=== PATIENT | female | born 1990 | race Caucasian/White ===

== ENCOUNTER 2020-01-13 10:36 | Emergency (ER) | payer OTHER ==
[~2020-01-13] VITALS: Ht 162.6 cm; Wt 57.0 kg
[2020-01-13] MEDS ORDERED: AZO-95TA3 PO (11:01)
--- NOTE | 2020-01-13 11:47 | REPVR ---
PROCEDURE INFORMATION: Exam: US Retroperitoneal Limited, Kidneys Exam date and time: 01/13/2020 11:41 AM Age: 29 years old Clinical indication: Abdominal pain; Generalized; Additional info: Bilat CVA tenderness with HX of kidney infection R/O pylo TECHNIQUE: Imaging protocol: Real-time ultrasound of the retroperitoneum with image documentation. Examination was focused on the kidneys. COMPARISON: No relevant prior studies available. FINDINGS: Right kidney: The right kidney measures 10.2 x 2.9 x 4.6 cm. Normal appearing echotexture. There is no hydronephrosis or demonstrated renal stone, cyst or mass. Left kidney: The left kidney measures 9.3 x 3.3 x 3.4 cm. Normal appearing echotexture. There is no hydronephrosis or demonstrated renal stone, cyst or mass. Bladder: Ureteral jets were not visualized in the urinary bladder, which appears otherwise grossly unremarkable. IMPRESSION: 1. No demonstrated sonographic abnormality of the kidneys, without hydronephrosis. 2. Ureteral jets not visualized in the urinary bladder, significance uncertain. Electronically signed by: Manny Hoyos On 01/13/2020 11:47:22 AM
[2020-01-13] MEDS ORDERED: NS 1,000 ML IV ONE (12:00)
[2020-01-13] MEDS ORDERED: KETOROLAC 30 MG/ML 1ML VIAL IV ONE (12:00)
[2020-01-13] MEDS ORDERED: ONDANSETRON 4MG/2ML VIAL IV ONE (12:00)
[2020-01-13 12:02] LABS: BILIRUBIN, URINE MANUAL OBSCURED (NEGATIVE); EOS # 0.1 10^3/uL (0.0-0.5); EOS % 1.7 % (0.0-3.0); HEMATOCRIT 38.7 % (36.0-47.0); HEMOGLOBIN 13.6 g/dl (12.0-15.5); KETONE, URINE MANUAL OBSCURED mg/dL (NEGATIVE); LYMPH # 1.7 10^3/uL (1.5-5.0); LYMPH % 24.3 % (24.0-44.0); MEAN CORPUSCULAR HGB CONC 35.1 g/dl (32.0-36.5); MEAN CORPUSCULAR VOLUME 91.1 fl (80.0-96.0); MONO # 0.5 10^3/uL (0.0-0.8); MONO % 7.4 % (0.0-5.0); NEUTROPHILS # 4.6 10^3/uL (1.5-8.5); NEUTROPHILS % 65.3 % (36.0-66.0); PLATELET COUNT, AUTOMATED 253 10^3/uL (150-450); RED BLOOD COUNT 4.25 10^6/uL (4.00-5.40); UROBILINOGEN, URINE MANUAL OBSCURED mg/dl (NORMAL)
[2020-01-13 12:03] LABS: BASO # 0.1 10^3/uL (0.0-0.2)
[2020-01-13 12:05] LABS: GLUCOSE, URINE (UA) MANUAL NEGATIVE (NEGATIVE)
[2020-01-13 12:22] LABS: BACTERIA, URINE SMALL AMOUNT
[2020-01-13 12:24] LABS: SQUAMOUS EPITHELIAL CELL URINE LARGE AMOUNT /hpf (SMALL AMT)
[2020-01-13 12:27] LABS: ALBUMIN 4.3 GM/DL (3.2-5.2); ALT/SGPT 13 U/L (12-78); BILIRUBIN,DIRECT 0.1 MG/DL (0.0-0.2); BILIRUBIN,TOTAL 0.5 MG/DL (0.2-1.0); BLOOD UREA NITROGEN 10 MG/DL (7-18); CALCIUM LEVEL 9.7 MG/DL (8.5-10.1); CARBON DIOXIDE LEVEL 27 MEQ/L (21-32); CHLORIDE LEVEL 107 MEQ/L (98-107); CREATININE FOR GFR 0.99 MG/DL (0.55-1.30); GLOMERULAR FILTRATION RATE > 60.0 (>60); GLUCOSE, FASTING 80 MG/DL (70-100); LIPASE 88 U/L (73-393); SODIUM LEVEL 139 MEQ/L (136-145); TOTAL PROTEIN 7.5 GM/DL (6.4-8.2); TRANSITIONAL EPI CELLS, URINE SMALL AMOUNT /hpf
[2020-01-13 12:31] LABS: MUCUS, URINE SMALL AMOUNT (NEGATIVE)
[2020-01-13] MEDS ORDERED: KEFL500C17 PO (12:45)
[2020-01-13] MEDS ORDERED: PYRI1TAB5 PO (12:46)
[2020-01-13 13:20] VITALS: BP 94/52
== END 2020-01-13 13:24 | disposition home or self-care (01) ==
LOC: M ED 10:36
DX: N39.0 Urinary tract infection, site not specified (principal); G93.9 Disorder of brain, unspecified; Z87.440 Personal history of urinary (tract) infections; F17.290 Nicotine dependence, other tobacco product, uncomplicated; Z88.5 Allergy status to narcotic agent; Z88.8 Allergy status to other drugs, medicaments and biological substances; Z91.048 Other nonmedicinal substance allergy status
CPT/HCPCS: 76775; 80048; 80076; 81000; 81015; 83690; 85025; 87088; 87186; 96361; 96374; 96375; 99284; J1885; J2405

== ENCOUNTER 2020-12-29 07:26 | Day surgery (SDC) | payer OTHER ==
[~2020-12-29] VITALS: Ht 162.6 cm; Wt 55.7 kg
[~2020-12-29 07:26] MED LIST: ACETAMINOPHEN *IV* 1,000 MG IV ONE; AZO-95TA3 PO; KEFL500C17 PO; LIDOCAINE 1% MDV 20ML VIAL SQ PRN; LR 1,000 ML IV ONE; PYRI1TAB5 PO; UNIS25TA3 PO
[2020-12-29] MEDS ORDERED: MIDAZOLAM INJ 2MG/2ML VIAL (J2250 PER 1MG) As Ordered ONE ×2 (07:55→09:59)
[2020-12-29] MEDS ORDERED: KETOROLAC 60MG 2ML VIAL As Ordered ONE (07:55)
[2020-12-29] MEDS ORDERED: fentaNYL 100 MCG/2 ML INJECTION (J3010) As Ordered ONE (07:55)
[2020-12-29] MEDS ORDERED: dexameTHASONE 4 MG/ML 1ML VIAL (J1100 PER 1MG) As Ordered ONE (07:55)
[2020-12-29] MEDS ORDERED: ONDANSETRON 4MG/2ML VIAL As Ordered ONE (07:55)
[2020-12-29] MEDS ORDERED: propofoL 200 MG/20 ML VIAL As Ordered ONE ×3 (07:55→09:32)
[2020-12-29] MEDS ORDERED: LIDOCAINE 2% 100MG/5ML SDV (FOR ANES.) As Ordered ONE (07:55)
[2020-12-29 08:09] LABS: HEMATOCRIT 40.9 % (36.0-47.0); HEMOGLOBIN 14.4 g/dl (12.0-15.5); MEAN CORPUSCULAR HGB CONC 35.2 g/dl (32.0-36.5); MEAN CORPUSCULAR VOLUME 90.9 fl (80.0-96.0); PLATELET COUNT, AUTOMATED 294 10^3/uL (150-450)
[2020-12-29 08:35] LABS: ALBUMIN 4.2 GM/DL (3.2-5.2); ALT/SGPT 31 U/L (12-78); BILIRUBIN,TOTAL 0.7 MG/DL (0.2-1.0); BLOOD UREA NITROGEN 11 MG/DL (7-18); CALCIUM LEVEL 9.2 MG/DL (8.5-10.1); CARBON DIOXIDE LEVEL 28 MEQ/L (21-32); CHLORIDE LEVEL 109 MEQ/L (98-107); CREATININE FOR GFR 1.05 MG/DL (0.55-1.30); GLOMERULAR FILTRATION RATE > 60.0 (>60); GLUCOSE, FASTING 89 MG/DL (70-100); SODIUM LEVEL 140 MEQ/L (136-145); TOTAL PROTEIN 7.5 GM/DL (6.4-8.2)
[2020-12-29] MEDS ORDERED: LEVONORGESTREL 52MG (MIRENA) IUD As Ordered ONE (08:41)
[2020-12-29] MEDS ORDERED: LIDOCAINE 1% SDV 30ML VIAL As Ordered ONE (08:54)
[2020-12-29] MEDS ORDERED: ACETAMINOPHEN 1000MG 100ML IV BTL (OFIRMEV) (J0131 PER 10MG) As Ordered ONE (09:07)
[2020-12-29] MEDS ORDERED: ePHEDrine SULFATE 25 MG/5 ML(5MG/ML) SYRINGE As Ordered ONE (09:24)
[2020-12-29] MEDS ORDERED: ONDANSETRON 4MG/2ML VIAL IV PRN (10:05)
[2020-12-29] MEDS ORDERED: LR 1,000 ML IV SCH (10:05)
[2020-12-29] MEDS ORDERED: METOCLOPRAMIDE INJ 10MG/2ML VIAL (J2765 PER 1) IV PRN (10:05)
[2020-12-29] MEDS ORDERED: diazePAM 10MG/2ML SYRINGE (J3360 PER 5MG) IV PRN ×2 (10:30→10:40)
[2020-12-29] MEDS ORDERED: diphenhydrAMINE 50MG/ML VIAL (J1200) IV STA (10:54)
[2020-12-29] MEDS ORDERED: diazePAM 10MG/2ML SYRINGE (J3360 PER 5MG) IV ONE (10:55)
[2020-12-29] MEDS ORDERED: oxyCODONE 5MG TAB PO ONE (11:00)
--- NOTE | 2020-12-29 11:32 | POST-OPPD ---
Postoperative Procedure Note Date Of Procedure: Dec 29, 2020 PREOPERATIVE DIAGNOSIS: retained IUD POSTOPERATIVE DIAGNOSIS: retained IUD PROCEDURE: hysteroscopic IUD removal, mirena IUD placement SURGEON: Elliot Martinez DO BALANCE SCREWHEAD POLISHER: Marce Parekh MD ANESTHESIA: sedation/MAC ESTIMATED BLOOD LOSS: 5cc FINDINGS: IUD in transverse position in the upper cervix, removed hysteroscopically, mirena replaced, normal appearing uterine cavity SPECIMENS: IUD COMPLICATIONS: none POSTOPERATIVE CONDITION: stable ELLIOT MARTINEZ DO Dec 29, 2020 11:32
--- NOTE | 2020-12-29 11:36 | ROOPDOC ---
[facility] Report Of Operation Report of Operation PREOPERATIVE DIAGNOSIS: retained IUD POSTOPERATIVE DIAGNOSIS: retained IUD PROCEDURE: hysteroscopic IUD removal, mirena IUD placement SURGEON: Elliot Martinez DO SUPER[employer] PROCESSING: Marce Parekh MD ANESTHESIA: sedation/MAC ESTIMATED BLOOD LOSS: 5cc FINDINGS: IUD in transverse position in the upper cervix, removed hysteroscopically, mirena replaced, normal appearing uterine cavity SPECIMENS: IUD COMPLICATIONS: none POSTOPERATIVE CONDITION: stable DESCRIPTION OF PROCEDURE: The risks, benefits, and alternatives of the procedure were discussed and written consent obtained. The patient was taken to the OR where she underwent sedation. She was placed in lithotomy in the yellow fins with her arms out. The vagina and perineum were prepped and draped in a sterile fashion. The bladder was drained. A final time out was performed. A speculum was placed and the anterior lip of the cervix grasped with a single tooth tenaculum. The cervix was dilated to 14F with hanks dilators. Initial attempt to grasp the IUD with the boseman and paras stone forceps failed. A 5mm hysteroscope was introduced and the IUD was visualized transverse in the upper cervix. Initial attempt to remove only removed and IUD string. Second attempt removed remainder of IUD which was in-tact. The uterus was sounded to 9cm with the mirena device and an IUD placed via the manufacturers instructions. The strings were cut to 4cm. The tenaculum was removed and the puncture sites were hemostatic. The speculum was removed. There were no complications. The sponge, lap, and needle counts were correct x2. The patient was transferred to recovery in stable condition. ELLIOT MARTINEZ DO Dec 29, 2020 11:36
[2020-12-29] MEDS ORDERED: oxyCODONE 5MG TAB PO PRN (12:20)
== END 2020-12-29 13:00 | disposition home or self-care (01) ==
LOC: M SDC 07:26
PROVIDERS: ATTEND Obstetrics & Gynecology
DX: T83.32XA Displacement of intrauterine contraceptive device, initial encounter (principal); Y76.2 Prosthetic and other implants, materials and accessory obstetric and gynecological devices associated with adverse incidents; K58.9 Irritable bowel syndrome, unspecified; Z87.440 Personal history of urinary (tract) infections; F17.290 Nicotine dependence, other tobacco product, uncomplicated; Z88.5 Allergy status to narcotic agent; Z88.8 Allergy status to other drugs, medicaments and biological substances; Z91.048 Other nonmedicinal substance allergy status; Z79.899 Other long term (current) drug therapy
CPT/HCPCS: 36415; 58300; 58562; 80053; 81025; 85027; 86850; 86900; 86901; 88300; J0131; J1100; J1200; J1885; J2250; J2405; J3010; J3360; J7298

== ENCOUNTER 2020-12-31 15:10 | Emergency (ER) | payer OTHER ==
[~2020-12-31] VITALS: Ht 162.6 cm; Wt 55.5 kg
[~2020-12-31 15:10] MED LIST changes: -ACETAMINOPHEN *IV* 1,000 MG IV ONE; -LIDOCAINE 1% MDV 20ML VIAL SQ PRN; -LR 1,000 ML IV ONE
[2020-12-31] MEDS ORDERED: KETOROLAC 30 MG/ML 1ML VIAL IV ONE (18:05)
--- NOTE | 2020-12-31 18:39 | REP ---
INDICATION: peliv pain s/p iud removal/replacement 12/29, vag bleeding. COMPARISON: None. TECHNIQUE: Transvesical and transvaginal imaging FINDINGS: The uterus measures 8.6 x 4.1 x 5.3 cm. The endometrial echo complex measures 5 mm. Within the endometrial cavity there is a small specular reflection. There is no free fluid The right ovary measures 3.6 x 2 x 2 point cm and is within normal limits Left ovary measures 3.1 x 3 x 2.2 cm and is within normal limits. Urinary bladder measures 4 x 3 x 7 cm. IMPRESSION: Findings in the endometrial cavity suggestive of at least a portion of an IUD. CT recommended. <Electronically signed by Olegario Cortez > 12/31/20 [id number]
[2020-12-31 18:56] LABS: BASO # 0.1 10^3/uL (0.0-0.2); BASO % 0.7 % (0.0-1.0); EOS # 0.2 10^3/uL (0.0-0.5); EOS % 1.5 % (0.0-3.0); HEMATOCRIT 37.8 % (36.0-47.0); HEMOGLOBIN 13.4 g/dl (12.0-15.5); LYMPH # 3.3 10^3/uL (1.5-5.0); LYMPH % 30.1 % (24.0-44.0); MEAN CORPUSCULAR HEMOGLOBIN 32.4 pg (27.0-33.0); MEAN CORPUSCULAR HGB CONC 35.4 g/dl (32.0-36.5); MEAN CORPUSCULAR VOLUME 91.3 fl (80.0-96.0); MONO # 0.7 10^3/uL (0.0-0.8); MONO % 6.3 % (2.0-8.0); NEUTROPHILS # 6.7 10^3/uL (1.5-8.5); PLATELET COUNT, AUTOMATED 279 10^3/uL (150-450); RED BLOOD COUNT 4.14 10^6/uL (4.00-5.40)
[2020-12-31] MEDS ORDERED: ISOVUE-370 76% 100ML VIAL As Ordered ONE (19:17)
--- NOTE | 2020-12-31 20:51 | REPVR ---
PROCEDURE INFORMATION: Exam: CT Pelvis With Contrast Exam date and time: 12/31/2020 7:55 PM Age: 30 years old Clinical indication: Pelvic pain; Prior surgery; Surgery date: Post-operative (0-2 days); Additional info: Pelvic pain S/P iud insertion 12/29- u/s recommends CT TECHNIQUE: Imaging protocol: Computed tomography images of the pelvis with intravenous contrast. Radiation optimization: All CT scans at this facility use at least one of these dose optimization techniques: automated exposure control; mA and/or kV adjustment per patient size (includes targeted exams where dose is matched to clinical indication); or iterative reconstruction. Contrast material: ISOVUE 370; Contrast volume: 100 ml; Contrast route: INTRAVENOUS (IV); COMPARISON: US PELVIC NON-OB COMPLETE 12/31/2020 6:02 PM FINDINGS: Stomach and bowel: There is increased feces throughout the visualized colon consistent with constipation. Appendix: No evidence of appendicitis. Intraperitoneal space: There is minimal fluid in the cul-de-sac most likely physiologic. Clinical correlation to exclude other causes of cul-de-sac fluid suggested. Lymph nodes: Unremarkable. No enlarged lymph nodes. Urinary bladder: Normal. No mass. Reproductive: IUD demonstrated centrally within the uterus. Bilateral enhancing cysts in the ovaries likely functional. Bones/joints: Unremarkable. No acute fracture. No dislocation. Soft tissues: Unremarkable. IMPRESSION: 1. There is increased feces throughout the visualized colon consistent with constipation. 2. IUD located centrally within the uterus. Electronically signed by: Vish Longoria On 12/31/2020 20:50:57 PM
[2020-12-31] MEDS ORDERED: PERCOCET 5MG/325MG TAB PO ONE (21:05)
[2020-12-31] MEDS ORDERED: ACETAMINOPHEN 500 MG TAB PO ONE (21:15)
[2020-12-31 22:25] LABS: GC DNA AMPLIFICATION NEGATIVE (NEGATIVE)
[2020-12-31] MEDS ORDERED: LIDOCAINE 1% SDV 5ML VIAL DILUENT ONE (23:15)
[2020-12-31] MEDS ORDERED: cefTRIAXone 500MG VIAL (J0696 PER 250MG) IM ONE (23:15)
[2020-12-31] MEDS ORDERED: DOXYCYCLINE HYCLATE 100MG TABLET PO ONE (23:15)
[2020-12-31] MEDS ORDERED: oxyCODONE 5MG TAB PO ONE (23:25)
[2020-12-31] MEDS ORDERED: ULTR50TA8 PO (23:27)
[2020-12-31] MEDS ORDERED: DOXY1CAP62 PO (23:27)
[2020-12-31 23:52] VITALS: BP 138/68
== END 2020-12-31 23:53 | disposition home or self-care (01) ==
LOC: M ED 15:10
DX: N73.0 Acute parametritis and pelvic cellulitis (principal); K59.00 Constipation, unspecified; A60.09 Herpesviral infection of other urogenital tract; Z87.440 Personal history of urinary (tract) infections; F17.290 Nicotine dependence, other tobacco product, uncomplicated; Z88.5 Allergy status to narcotic agent; Z88.8 Allergy status to other drugs, medicaments and biological substances; Z91.048 Other nonmedicinal substance allergy status; Z79.899 Other long term (current) drug therapy
CPT/HCPCS: 72193; 76830; 76856; 80047; 81001; 84702; 85025; 87086; 87210; 87661; 93976; 96372; 96374; 99284; J0696; J1885; Q9967

== ENCOUNTER 2023-04-27 08:16 | Day surgery (SDC) | payer OTHER ==
[~2023-04-27] VITALS: Ht 162.6 cm; Wt 57.7 kg
[~2023-04-27 08:16] MED LIST changes: +DOXY-443 PO; +FLUO10CA18 PO; +MIRT-10 PO; +NAPR-885 PO; +NS 1,000 ML IV ONE; +ULTR50TA8 PO; +propofoL 200 MG/20 ML VIAL As Ordered ONE
[2023-04-27] MEDS ORDERED: MIDAZOLAM INJ 2MG/2ML VIAL As Ordered ONE (08:47)
[2023-04-27 09:13] VITALS: TEMP 99.6
[2023-04-27 09:30] VITALS: BP 97/59; O2SAT 100
== END 2023-04-27 09:43 | disposition home or self-care (01) ==
LOC: M OPP 08:16
PROVIDERS: ATTEND Internal Medicine Gastroenterology
DX: Z86.010 Personal history of colon polyps (principal); Z80.0 Family history of malignant neoplasm of digestive organs; D12.6 Benign neoplasm of colon, unspecified; K64.4 Residual hemorrhoidal skin tags; K64.8 Other hemorrhoids; K62.89 Other specified diseases of anus and rectum; F17.290 Nicotine dependence, other tobacco product, uncomplicated; Z88.5 Allergy status to narcotic agent; Z88.8 Allergy status to other drugs, medicaments and biological substances; Z91.040 Latex allergy status; Z91.048 Other nonmedicinal substance allergy status
CPT/HCPCS: 45385; 88305; J2250

== ENCOUNTER → 2023-07-29 | Outpatient (CLI) | payer OTHER ==
[~2023-07-29] MED LIST changes: -NS 1,000 ML IV ONE; -propofoL 200 MG/20 ML VIAL As Ordered ONE
== END ==
LOC: M LAB 13:23
PROVIDERS: ATTEND Nurse Practitioner Family
DX: R19.7 Diarrhea, unspecified (principal)